=== PATIENT | female | born 1990 | race Caucasian/White ===

== ENCOUNTER 2019-10-23 16:15 | Emergency (ER) | payer BC, MEDICAID, SELFPAY ==
[2019-10-23 16:29] VITALS: BP 117/71; PULSE 71; RESP 20; TEMP 37.6; O2SAT 100
--- NOTE | 2019-10-23 16:53 | ED.URI ---
HPI - URI/Sore Throat General Chief Complaint: Upper Respiratory Infection Stated Complaint: sore throat/harrell Source: patient and RN notes reviewed Mode of arrival: ambulatory Limitations: clinical condition History of Present Illness HPI Narrative: The simple patient, on schizoaffective meds and a non-smoker/nondrinker, presents with sore throat. Mother states child lives at home has a shorter 1 to 2-day history of scratchy sore throat. No fever [temp 99], earache, cough, vomiting/diarrhea, rash. Symptoms are mild; mother was treated for influenza A last weekend Related Data Home Medications Medication Instructions Recorded Confirmed L norgest/e.estradiol-e.estrad 1 tablet PO DAILY 10/23/19 10/23/19 [Camrese] aripiprazole 20 mg PO DAILY 10/23/19 10/23/19 aripiprazole [Abilify Maintena] 400 mg IM PER PKG DIR 10/23/19 10/23/19 gabapentin 600 mg PO BID 10/23/19 10/23/19 oxcarbazepine 600 mg PO USEASDIRECTD 10/23/19 10/23/19 sertraline 100 mg PO BID 10/23/19 10/23/19 Allergies Allergy/AdvReac Type Severity Reaction Status Date / Time No Known Allergies Allergy Verified 10/23/19 16:35 Review of Systems Review of Systems: Narrative: General/Constitutional: No weight loss,fever Eyes: N0: Redness,discharge Ears/Nose/Throat: No: Epistaxis,ear discharge Respiratory: Denies: Hemoptysis Gastrointestinal: No Vomiting, Bleeding-rectal Skin: No Lumps, eruption Neurologic: No Focal Weakness,Sz Hematologic: Denies: Petechiae/Purpura Psychiatric: No: Suicida ideationl All Other Systems: Reviewed and Negative PMFSH Comments At time of signature, agree with nursing past medical, surgical, social and family history. There is no relevant family history pertinent to the presenting complaint Exam Narrative: Exam Narrative: General Appearance: Well appearing, Well nourished EYE: PERRLA, Conjunctiva clear Ears: Auditory canal normal, TM normal Nose: Rhinorrhea, Mucousal erythema Mouth/Throat: MM moist, Uvula midline, Pharyngeal erythema Neck: Supple, No adenopathy Respiratory: No respiratory distress, Breath sounds equal, Clear to auscultation Cardiovascular: RRR, No JVD Musculoskeletal: Non tender, Normal strength Skin: Warm, Dry Neurological: A&O x3, CN II-XII intact Psychiatric: Normal mood, Normal affect Course Vital Signs Vital signs: Vital Signs Temperature 99.6 F 10/23/19 16:29 Pulse Rate 71 10/23/19 16:29 Respiratory Rate 20 10/23/19 16:29 Blood Pressure 117/71 10/23/19 16:29 Pulse Oximetry 100 10/23/19 16:29 Temperature 99.6 F 10/23/19 16:29 Pulse Rate 71 10/23/19 16:29 Respiratory Rate 20 10/23/19 16:29 Blood Pressure 117/71 10/23/19 16:29 Pulse Oximetry 100 10/23/19 16:29 MDM - URI/Sore Throat Lab Data Labs: Influenza A Screen Negative Reference Range: Negative Influenza B Screen Negative Reference Range: Negative Strep Screen Positive Group A Strep *(Reference Range: Negative)* Discharge Plan Discharge Clinical Impression: Pharyngitis Qualifiers: Pharyngitis/tonsillitis etiology: other specified organisms Qualified Code(s): J02.8 - Acute pharyngitis due to other specified organisms Patient Disposition: Home, Self-Care Condition: Stable Instructions: Antibiotic Form, Strep Throat (ED) Prescriptions: New Lidocaine Viscous 2 % solution 5 ml MUCOUS MEM QID PRN (Reason: pain) Qty: 100 RF: 0 amoxicillin 875 mg tablet 875 mg PO Q12H Qty: 20 RF: 0 No Action gabapentin 600 mg Tablet 600 mg PO BID RF: 0 oxcarbazepine 600 mg Tablet 600 mg PO USEASDIRECTD RF: 0 aripiprazole 20 mg Tablet 20 mg PO DAILY RF: 0 L norgest/e.estradiol-e.estrad [Camrese] 0.15 mg-30 mcg (84)/10 mcg (7) Tablets,Dose Pack,3 Month 1 tablet PO DAILY RF: 0 sertraline 100 mg Tablet 100 mg PO BID RF: 0 Abilify Maintena 400 mg Suspension,Extended Rel Syring
== END 2019-10-23 17:08 | disposition home or self-care (01) ==
PROVIDERS: Emergency Provider Emergency Medicine
DX: J02.0 Streptococcal pharyngitis (principal); F41.9 Anxiety disorder, unspecified; F20.9 Schizophrenia, unspecified
CPT/HCPCS: 87804; 87880; 99213; G0463